=== PATIENT | female | born 1985 | race American Indian/Alaskan Native ===

== ENCOUNTER 2016-06-06 09:23 | Emergency (ER) | payer SELFPAY ==
[2016-06-06 09:57] VITALS: BP 110/73
[2016-06-06 10:30] LABS: Basophils % (Auto) 0.3 % (0.0-1.8); Eosinophils % (Auto) 0.9 % (0.0-4.3); Hematocrit 38.1 % (30.3-42.9); Hemoglobin 12.6 gm/dl (10.1-14.3); Mean Corpuscular HGB Conc 33 % (30-34); Mean Corpuscular Hemoglobin 29 pg (28-32); Mean Corpuscular Volume 88 fl (79-97); Platelet Count 245 K/mm3 (140-440); Red Blood Count 4.31 M/mm3 (3.65-5.03); Red Cell Distribution Width 13.6 % (13.2-15.2); White Blood Count 10.2 K/mm3 (4.5-11.0)
[2016-06-06 10:37] LABS: Alanine Aminotransferase 10 units/L (7-56); Albumin 3.4 g/dL (3.9-5); Albumin/Globulin Ratio 1.1 %; Alkaline Phosphatase 50 units/L (35-129); Anion Gap 13 mmol/L; BUN/Creatinine Ratio 23.33; Bilirubin,Total 0.2 mg/dL (0.1-1.2); Blood Urea Nitrogen 7 mg/dL (7-17); Calcium 8.9 mg/dL (8.4-10.2); Carbon Dioxide 26 mmol/L (22-30); Chloride 100.3 mmol/L (98-107); Glucose 62 mg/dL (65-100); Lipase 21 units/L (13-60); Potassium 4.3 mmol/L (3.6-5.0); Sodium 135 mmol/L (137-145); Total Protein 6.5 g/dL (6.3-8.2)
[2016-06-06 11:24] LABS: Bilirubin,Urine NEG (Negative); Blood,Urine NEG (Negative); Ketones,Urine NEG (Negative); Leukocyte Esterase,Urine NEG (Negative); Mucus,Urine FEW /HPF; Nitrite,Urine NEG (Negative); Protein,Urine <15 mg/dL mg/dL (Negative); Urobilinogen,Urine < 2.0 mg/dL (<2.0)
[2016-06-06 11:55] LABS: WBC,Urine < 1.0 /HPF (0.0-6.0)
--- NOTE | 2016-06-06 12:00 | Ultrasound Report ---
Gestation: Single Position: Breech Amniotic Fluid: JABIER = normal cm Placenta: Posterior Placental Grade: 0 Heart Rate: 152 BPM Cervical length: 4.5 cm (Normal > 3 cm) It is too early for a anatomical survey BPD: 3.4 cm = 16 w 4 d HC: 2.3 cm = 16 w 1 d AC: 9.7 cm = 15 w 6 d FL: 2 cm = 15 w 6 d HC/AC Ratio: 1.3 Cephalic Index: 87 Estimated Weight: 138 grams Clinical age = 15 w 6 d EDC: 11/22/16 US Gest. Age = 16 w 1 d EDC: 11/20 at 17
--- NOTE | 2016-06-08 19:52 | ED Elopement Review ---
ED Pt Elopement review - Results review Lab results: Laboratory Tests 06/06/16 06/06/16 06/06/16 10:12 10:12 10:12 WBC 10.2 RBC 4.31 Hgb 12.6 Hct 38.1 MCV 88 MCH 29 MCHC 33 RDW 13.6 Plt Count 245 Lymph % (Auto) 16.4 [place] % (Auto) 7.2 Eos % (Auto) 0.9 Baso % (Auto) 0.3 Lymph # 1.7 [place] # 0.7 Eos # 0.1 Baso # 0.0 Seg Neutrophils % 75.2 H Seg Neutrophils # 7.7 Sodium 135 L Potassium 4.3 Chloride 100.3 Carbon Dioxide 26 Anion Gap 13 BUN 7 Creatinine 0.3 L Estimated GFR > 60 BUN/Creatinine Ratio 23.33 Glucose 62 L Calcium 8.9 Total Bilirubin 0.2 AST 13 ALT 10 Alkaline Phosphatase 50 Total Protein 6.5 Albumin 3.4 L Albumin/Globulin Ratio 1.1 Lipase 21 HCG, Quant 39335 H Urine Color Urine Turbidity Urine pH Ur Specific [place] Urine Protein Urine Glucose (UA) Urine Ketones Urine Blood Urine Nitrite Urine Bilirubin Urine Urobilinogen Ur Leukocyte Esterase Urine WBC (Auto) Urine RBC (Auto) U Epithel Cells (Auto) Urine Mucus 06/06/16 Unknown WBC RBC Hgb Hct MCV MCH MCHC RDW Plt Count Lymph % (Auto) [place] % (Auto) Eos % (Auto) Baso % (Auto) Lymph # [place] # Eos # Baso # Seg Neutrophils % Seg Neutrophils # Sodium Potassium Chloride Carbon Dioxide Anion Gap BUN Creatinine Estimated GFR BUN/Creatinine Ratio Glucose Calcium Total Bilirubin AST ALT Alkaline Phosphatase Total Protein Albumin Albumin/Globulin Ratio Lipase HCG, Quant Urine Color Yellow Urine Turbidity Clear Urine pH 8.0 H Ur Specific [place] 1.019 Urine Protein <15 mg/dl Urine Glucose (UA) Neg Urine Ketones Neg Urine Blood Neg Urine Nitrite Neg Urine Bilirubin Neg Urine Urobilinogen < 2.0 Ur Leukocyte Esterase Neg Urine WBC (Auto) < 1.0 Urine RBC (Auto) 1.0 U Epithel Cells (Auto) 3.0 Urine Mucus Few - Call Back decision Pt Call Back Decision: No action required
== END 2016-06-06 15:45 | disposition left against medical advice (07) ==
LOC: ED 09:23
DX: O26.892 Other specified pregnancy related conditions, second trimester (principal); R10.9 Unspecified abdominal pain; Z53.21 Procedure and treatment not carried out due to patient leaving prior to being seen by health care provider; Z3A.16 16 weeks gestation of pregnancy
CPT/HCPCS: 36415; 76805; 80053; 81001; 83690; 84702; 85025

== ENCOUNTER 2016-07-19 06:09 | Outpatient (CLI) | payer MEDICAID ==
[2016-07-19 06:35] VITALS: BP 120/68
[2016-07-19] MEDS ORDERED: LACTATED RINGERS 500 ML IV ONE (06:46)
[2016-07-19 07:32] LABS: Bacteria,Urine 1+ /HPF (Negative); Bilirubin,Urine NEG (Negative); Blood,Urine NEG (Negative); Ketones,Urine NEG (Negative); Leukocyte Esterase,Urine MOD (Negative); Mucus,Urine 1+ /HPF; Nitrite,Urine NEG (Negative); Protein,Urine <15 mg/dL mg/dL (Negative); Urobilinogen,Urine < 2.0 mg/dL (<2.0)
== END 2016-07-19 09:13 | disposition home or self-care (01) ==
LOC: TRG 06:09
PROVIDERS: ATTEND Obstetrics & Gynecology
DX: O47.02 False labor before 37 completed weeks of gestation, second trimester (principal); Z3A.22 22 weeks gestation of pregnancy
CPT/HCPCS: 81001

== ENCOUNTER 2018-09-20 00:38 | Emergency (ER) | payer MEDICAID ==
[2018-09-20] MEDS ORDERED: ASPIRIN PO ONE (04:11)
[2018-09-20] MEDS ORDERED: TYLENOL PO ONE (04:12)
[2018-09-20 06:04] LABS: Basophils # (Auto) 0.1 K/mm3 (0.0-0.1); Basophils % (Auto) 1.1 % (0.0-1.8); Eosinophils % (Auto) 0.6 % (0.0-4.3); Hematocrit 38.2 % (30.3-42.9); Hemoglobin 12.8 gm/dl (10.1-14.3); Lymphocytes # (Auto) 1.8 K/mm3 (1.2-5.4); Mean Corpuscular HGB Conc 34 % (30-34); Mean Corpuscular Volume 90 fl (79-97); Monocytes # (Auto) 0.5 K/mm3 (0.0-0.8); Monocytes % (Auto) 6.1 % (0.0-7.3); Platelet Count 209 K/mm3 (140-440); Red Blood Count 4.27 M/mm3 (3.65-5.03)
[2018-09-20 06:13] LABS: Bilirubin,Urine NEG (Negative); Blood,Urine NEG (Negative); Color,Urine Yellow (Yellow); Mucus,Urine FEW /HPF; Protein,Urine <15 mg/dL mg/dL (Negative); Urobilinogen,Urine < 2.0 mg/dL (<2.0); WBC,Urine < 1.0 /HPF (0.0-6.0)
[2018-09-20 06:30] LABS: Alanine Aminotransferase 14 units/L (7-56); Albumin 3.8 g/dL (3.9-5); BUN/Creatinine Ratio 18; Blood Urea Nitrogen 9 mg/dL (7-17); Calcium 8.9 mg/dL (8.4-10.2); Hemolysis Index 7
--- NOTE | 2018-09-20 06:43 | Emergency Department Report ---
<TREY GUPTA - Last Filed: 09/20/18 07:08> ED General Adult HPI - General Chief complaint: Chest Pain Stated complaint: BACK/ABD PAIN Time Seen by Provider: 09/20/18 04:05 Source: patient Mode of arrival: Ambulatory Limitations: No Limitations - History of Present Illness Initial comments: Patient is a 33-year-old -[place] female with a h/o HTN and GERD presents to the ED with complaint of acute onset persistent posterior midthoracic pain that radiated to the chest and lower abdominal pain for the last 2 days. Patient denies dizziness, fever, chills, nausea, vomiting, diarrhea, dysuria, cough, change in vision, headache, sore throat, heavy lifting or traumatic injury. Patient states that the pain has been intermittent and worse in the last 12 hours. MD Complaint: back pain, abdominal pain, chest pain -: Sudden, days(s) (2) Location: chest, back, abdomen Radiation: non-radiation Severity scale (0 -10): 7 Quality: sharp, constant Consistency: constant Improves with: none Worsens with: none Associated Symptoms: denies other symptoms. denies: confusion, chest pain, cough, diaphoresis, headaches, malaise, nausea/vomiting, shortness of breath, syncope - Related Data Home Medications Medication Instructions Recorded Confirmed Last Taken hydroCHLOROthiazide 25 mg PO DAILY 01/27/14 08/19/14 05/18/14 10:00 [Hydrochlorothiazide] Previous Rx's Medication Instructions Recorded Last Taken Type Ibuprofen [Motrin] 600 mg PO Q8H PRN #12 tablet 08/19/14 Unknown Rx Fluconazole [Diflucan TAB] 150 mg PO QDAY #2 tablet 03/07/15 Unknown Rx amLODIPine [Norvasc] 10 mg PO DAILY #30 tab 09/20/18 Unknown Rx Allergies Allergy/AdvReac Type Severity Reaction Status Date / Time No Known Allergies Allergy Verified 05/20/14 11:50 ED Review of Systems Constitutional: denies: chills, fever Eyes: denies: eye pain, eye discharge, vision change ENT: denies: ear pain, throat pain Respiratory: denies: cough, shortness of breath, SOB with exertion, SOB at rest, wheezing Cardiovascular: chest pain. denies: palpitations Endocrine: no symptoms reported Gastrointestinal: abdominal pain (lower). denies: nausea, diarrhea Genitourinary: denies: urgency, dysuria, discharge Musculoskeletal: back pain, arthralgia. denies: joint swelling Skin: denies: rash, lesions Neurological: denies: headache, weakness, paresthesias Psychiatric: denies: anxiety, depression Hematological/Lymphatic: denies: easy bleeding, easy bruising ED Past Medical Hx - Past Medical History Hx Hypertension: Yes Hx Diabetes: No Hx Deep Vein Thrombosis: No Hx GERD: Yes Hx Renal Disease: No Hx Sickle Cell Disease: No Hx Seizures: No Hx Asthma: No Additional medical history: acid reflux - Social History Smoking Status: Current Every Day Smoker - Medications Home Medications: Home Medications Medication Instructions Recorded Confirmed Last Taken Type hydroCHLOROthiazide 25 mg PO DAILY 01/27/14 08/19/14 05/18/14 10:00 History [Hydrochlorothiazide] Ibuprofen [Motrin] 600 mg PO Q8H PRN #12 tablet 08/19/14 Unknown Rx Fluconazole [Diflucan TAB] 150 mg PO QDAY #2 tablet 03/07/15 Unknown Rx amLODIPine [Norvasc] 10 mg PO DAILY #30 tab 09/20/18 Unknown Rx ED Physical Exam - General Limitations: No Limitations General appearance: alert, in no apparent distress - Head Head exam: Present: atraumatic, normocephalic, normal inspection - Eye Eye exam: Present: normal appearance, PERRL, EOMI. Absent: scleral icterus, conjunctival injection, nystagmus, periorbital swelling, periorbital tenderness - ENT ENT exam: Present: normal exam, normal orophraynx, mucous membranes moist, TM's normal bilaterally, normal external ear exam - Neck Neck exam: Present: normal inspection, full ROM - Respiratory Respiratory exam: Present: normal lung sounds bilaterally, chest wall tenderness. Absent: respiratory distress, wheezes, rales, stridor, decreased breath sounds, prolonged expiratory - Cardiovascular Cardiovascular Exam: Present: regular rate, normal rhythm, normal heart sounds. Absent: systolic murmur, diastolic murmur, rubs, gallop - GI/Abdominal GI/Abdominal exam: Present: soft, normal bowel sounds. Absent: distended, tenderness, guarding, hyperactive bowel sounds, hypoactive bowel sounds, orga nomegaly - Rectal Rectal exam: Present: deferred - Extremities Exam Extremities exam: Present: normal inspection, full ROM, normal capillary refill - Back Exam Back exam: Present: normal inspection, tenderness (Palpable posterior mid thoracic paraspinal tenderness), muscle spasm, paraspinal tenderness - Neurological Exam Neurological exam: Present: alert, oriented X3, CN II-XII intact, normal gait, reflexes normal - Psychiatric Psychiatric exam: Present: normal affect, normal mood - Skin Skin exam: Present: warm, dry, intact, normal color. Absent: rash ED Course - Reevaluation(s) Reevaluation #1: 09/20/18 06:50 Patient is alert and oriented 3 and is not in distress but hypertensive. Labs were drawn, EKG was ordered and chest x-ray ordered as well. Patient was treated for pain in the ED. EKG shows normal sinus rhythm with a ventricular rate of [address] or T-wave abnormalities. Chest x-ray shows no acute cardiopulmonary abnormalities. Lab tests results were reviewed and are all unremarkable including urinalysis and initial troponin levels. Vital signs were rechecked and the patient's blood pressure was 174/81. The second troponin level is pending. Patient care transferred to Anayeli Aly Owens MARILIN at shift change at 0700 hours 09/20/18 07:08 ED Medical Decision Making - Lab Data Result diagrams: 09/20/18 05:48 09/20/18 05:48 - Radiology Data Radiology results: report reviewed, image reviewed chest x-ray : No acute cardiopulmonary abnormalities - Medical Decision Making Patient is alert and oriented 3 and is not in distress but hypertensive. Labs were drawn, EKG was ordered and chest x-ray ordered as well. Patient was treated for pain in the ED. EKG shows normal sinus rhythm with a ventricular rate of [address] or T-wave abnormalities. Chest x-ray shows no acute cardiopulmonary abnormalities. Lab tests results were reviewed and are all unremarkable including urinalysis and initial troponin levels. Vital signs were rechecked and the patient's blood pressure was 174/81. The second troponin level is pending. Patient care transferred to Mr. Aly Owens MARILIN at shift change at 0700 hours - Differential Diagnosis nonspecific chest pain; muscle spasm; uncontrolled HTN ED Disposition Clinical Impression: Nonspecific chest pain, Uncontrolled stage 2 hypertension, Spasm of thoracic back muscle Disposition: - TO HOME OR SELFCARE Is pt being admited?: No Does the pt Need Aspirin: No Condition: Stable Instructions: Muscle Spasm (ED), Back Pain (ED), Chest Pain (ED), Hypertension (ED) Additional Instructions: Take medications with food, drink plenty of fluids and follow-up with [facility] in 5-7 days for reevaluation. Return to the ED immediately if symptoms get worse. Prescriptions: amLODIPine [Norvasc] 10 mg PO DAILY #30 tab Referrals: [facility] MD FELIZ [Primary Care Provider] - 3-5 Days PRIMARY CAREMD [Referring] - 3-5 Days JEANIE LAZARO MD [Staff Physician] - 3-5 Days [facility] [Outside] - 3-5 Days YENNY YU MD [Staff Physician] - 3-5 Days Print Language: BELARUSIAN <ALY OWENS - Last Filed: 09/20/18 08:10> ED Review of Systems ROS: Stated complaint: BACK/ABD PAIN Other details as noted in HPI ED Course Vital Signs 09/20/18 09/20/18 09/20/18 00:50 01:01 07:01 Temperature 98.2 F Pulse Rate 86 81 62 Respiratory 18 18 Rate Blood Pressure 209/101 Blood Pressure 181/87 174/80 [Left] O2 Sat by Pulse 100 100 Oximetry ED Medical Decision Making - Lab Data Result diagrams: 09/20/18 05:48 09/20/18 05:48 - Medical Decision Making Patient was originally seen by Trey Gupta and was sent to me for pending second troponin. Second troponin is negative. As per [place], patient be placed on Norvasc for blood pressure and was instructed to keep a daily diary of blood pressure and presented to primary care doctor. Patient was instructed to Fo llow-up with a primary care doctor in 3-5 days or if symptoms worsen and continue return to emergency room as soon as possible. At time of discharge, the patient does not seem toxic or ill in appearance. No acute signs of distress noted. Patient agrees to discharge treatment plan of care. No further questions noted by the patient. Critical care attestation.: If time is entered above; I have spent that time in minutes in the direct care of this critically ill patient, excluding procedure time.
[2018-09-20 07:02] VITALS: BP 174/80
--- NOTE | 2018-09-20 07:07 | XRay Report ---
CHEST PA AND LATERAL VIEWS INDICATION: chest pain. COMPARISON: None. FINDINGS: Support devices: None. Heart: Within normal limits. Lungs/Pleura: No acute pulmonary or pleural findings. IMPRESSION: 1. No significant abnormality. Signer Name: Eric Landis MD Signed: 09/20/2018 7:02 AM Workstation Name: [id number]
== END 2018-09-20 08:16 | disposition home or self-care (01) ==
LOC: ED 00:38
DX: M62.830 Muscle spasm of back (principal); K21.9 Gastro-esophageal reflux disease without esophagitis; I10 Essential (primary) hypertension; F17.200 Nicotine dependence, unspecified, uncomplicated; Z79.899 Other long term (current) drug therapy
CPT/HCPCS: 36415; 71046; 80053; 81001; 84484; 84703; 85025; 93005; 93010

== ENCOUNTER 2018-10-26 18:48 | Emergency (ER) | payer MEDICAID ==
--- NOTE | 2018-10-26 19:45 | Emergency Department Report ---
Blank Doc - Documentation Documentation: This is a 33-year-old female that presents with flank pain, pelvic pain, and n ausea. Stated is 7 weeks . This initial assessment/diagnostic orders/clinical plan/treatment(s) is/are subject to change based on patient's health status, clinical progression and re-assessment by fellow clinical providers in the ED. Further treatment and workup at subsequent clinical providers discretion. Patient/guardians urged not to elope from the ED as their condition may be serious if not clinically assessed and managed. Initial orders include: 1- Patient sent to [facility] for further evaluation and treatment 2- UA 3- labs 4- US OB
[2018-10-26 19:47] VITALS: BP 170/86
[2018-10-26 20:27] LABS: Basophils % (Auto) 0.3 % (0.0-1.8); Eosinophils # (Auto) 0.1 K/mm3 (0.0-0.4); Eosinophils % (Auto) 0.8 % (0.0-4.3); Hematocrit 36.3 % (30.3-42.9); Hemoglobin 12.2 gm/dl (10.1-14.3); Lymphocytes # (Auto) 3.1 K/mm3 (1.2-5.4); Lymphocytes % (Auto) 28.8 % (13.4-35.0); Mean Corpuscular HGB Conc 34 % (30-34); Mean Corpuscular Volume 90 fl (79-97); Monocytes # (Auto) 0.7 K/mm3 (0.0-0.8); Monocytes % (Auto) 6.7 % (0.0-7.3); Platelet Count 214 K/mm3 (140-440); Red Blood Count 4.04 M/mm3 (3.65-5.03); Red Cell Distribution Width 13.7 % (13.2-15.2)
[2018-10-26 20:35] LABS: Bilirubin,Urine NEG (Negative); Blood,Urine NEG (Negative); Color,Urine Yellow (Yellow); Hyaline Casts,Urine 2 /LPF; Mucus,Urine 3+ /HPF; Urobilinogen,Urine < 2.0 mg/dL (<2.0)
[2018-10-26] MEDS ORDERED: ZOFRAN ODT PO ONE (22:18)
[2018-10-26] MEDS ORDERED: ZOFRAN ODT ONE (22:19)
[2018-10-27] MEDS ORDERED: TYLENOL PO ONE (00:11)
[2018-10-27] MEDS ORDERED: ZOFRAN ODT PO ONE (00:11)
[2018-10-27] MEDS ORDERED: TYLENOL ONE (00:35)
[2018-10-27] MEDS ORDERED: ZOFRAN ODT ONE (00:35)
--- NOTE | 2018-10-27 01:15 | Emergency Department Report ---
ED Abdominal Pain HPI - General Chief Complaint: Abdominal Pain Stated Complaint: 7WKS /BACK/SIDE PAIN Time Seen by Provider: 10/26/18 19:44 Source: patient Mode of arrival: Ambulatory Limitations: No Limitations - History of Present Illness Initial Comments: Patient is a 33-year-old [place] female who is a A4 and was approximately eight-week frustration presents to the ED with complaint of acute onset persistent left flank pain that radiates to the suprapubic area with intractable nausea and vomiting for the last 2 days. Patient states that the last 12 hours she has hardly eaten anything because of nausea and vomiting. Patient denies dysuria, urinary frequency and urgency, vaginal bleeding, diarrhea, fever, chills, dizziness, back pain, chest pain, shortness of breath or headache and vaginal discharge. MD Complaint: abdominal pain, flank pain (left flank pain), other (nausea and vomiting) -: Sudden, days(s) (2) Location: suprapubic, L flank Radiation: suprapubic, L flank Migration to: no migration Severity: moderate Severity scale (0 -10): 3 Quality: cramping, aching, sharp Consistency: constant Improves With: nothing Worsens With: movement Associated Symptoms: denies other symptoms, nausea, vomiting. denies: diarrhea, fever, chills, dysuria, hematemesis, hematochezia, melena, anorexia, syncope - Related Data Home Medications Medication Instructions Recorded Confirmed Last Taken hydroCHLOROthiazide 25 mg PO DAILY 01/27/14 08/19/14 05/18/14 10:00 [Hydrochlorothiazide] Previous Rx's Medication Instructions Recorded Last Taken Type Ibuprofen [Motrin] 600 mg PO Q8H PRN #12 tablet 08/19/14 Unknown Rx Fluconazole [Diflucan TAB] 150 mg PO QDAY #2 tablet 03/07/15 Unknown Rx amLODIPine [Norvasc] 10 mg PO DAILY #30 tab 09/20/18 Unknown Rx Ondansetron [Zofran Odt] 4 mg PO Q6H PRN #15 tab.rapdis 10/27/18 Unknown Rx Promethazine [Phenergan] 25 mg PO Q6HR PRN #30 tab 10/27/18 Unknown Rx Allergies Allergy/AdvReac Type Severity Reaction Status Date / Time No Known Allergies Allergy Verified 03/06/15 11:50 ED Review of Systems ROS: Stated complaint: 7WKS /BACK/SIDE PAIN Other details as noted in HPI Constitutional: denies: chills, fever Eyes: denies: eye pain, eye discharge, vision change ENT: denies: ear pain, throat pain Respiratory: denies: cough, shortness of breath, wheezing Cardiovascular: denies: chest pain, palpitations Endocrine: no symptoms reported Gastrointestinal: abdominal pain (left flank), nausea, vomiting. denies: diarrhea Genitourinary: denies: urgency, dysuria, discharge Musculoskeletal: back pain, myalgia. denies: joint swelling, arthralgia Skin: denies: rash, lesions Neurological: denies: headache, weakness, paresthesias Psychiatric: denies: anxiety, depression Hematological/Lymphatic: denies: easy bleeding, easy bruising ED Past Medical Hx - Past Medical History Previous Medical History?: Yes Hx Hypertension: Yes Hx Diabetes: No Hx Deep Vein Thrombosis: No Hx GERD: Yes Hx Renal Disease: No Hx Sickle Cell Disease: No Hx Seizures: No Hx Asthma: No Additional medical history: acid reflux - Surgical History Past Surgical History?: No - Social History Smoking Status: Current Every Day Smoker - Medications Home Medications: Home Medications Medication Instructions Recorded Confirmed Last Taken Type hydroCHLOROthiazide 25 mg PO DAILY 01/27/14 08/19/14 05/18/14 10:00 History [Hydrochlorothiazide] Ibuprofen [Motrin] 600 mg PO Q8H PRN #12 tablet 08/19/14 Unknown Rx Fluconazole [Diflucan TAB] 150 mg PO QDAY #2 tablet 03/07/15 Unknown Rx amLODIPine [Norvasc] 10 mg PO DAILY #30 tab 09/20/18 Unknown Rx Ondansetron [Zofran Odt] 4 mg PO Q6H PRN #15 tab.rapdis 10/27/18 Unknown Rx Promethazine [Phenergan] 25 mg PO Q6HR PRN #30 tab 10/27/18 Unknown Rx ED Physical Exam - General Limitations: No Limitations General appearance: alert, in no apparent distress - Head Head exam: Present: atraumatic, normocephalic, normal inspection - Eye Eye exam: Present: normal appearance, PERRL, EOMI Pupils: Present: normal accommodation - ENT ENT exam: Present: normal exam, normal orophraynx, mucous membranes moist, TM's normal bilaterally, normal external ear exam - Neck Neck exam: Present: normal inspection, full ROM - Respiratory Respiratory exam: Present: normal lung sounds bilaterally. Absent: respiratory distress, wheezes, rales, stridor, chest wall tenderness, decreased breath sounds, prolonged expiratory - Cardiovascular Cardiovascular Exam: Present: regular rate, normal rhythm, normal heart sounds. Absent: systolic murmur, diastolic murmur, rubs, gallop - GI/Abdominal GI/Abdominal exam: Present: soft, tenderness (Left flank, suprapubic), normal bowel sounds. Absent: guarding, rebound, hyperactive bowel sounds, organomegaly - Rectal Rectal exam: Present: deferred - Bi-manual exam: Present: other (deferred, patient choice) - Extremities Exam Extremities exam: Present: normal inspection, normal capillary refill - Back Exam Back exam: Present: normal inspection, full ROM. Absent: tenderness, CVA tenderness (R), CVA tenderness (L), muscle spasm, paraspinal tenderness, verte bral tenderness - Neurological Exam Neurological exam: Present: alert, oriented X3, CN II-XII intact, normal gait, reflexes normal - Psychiatric Psychiatric exam: Present: normal affect, normal mood - Skin Skin exam: Present: warm, dry, intact, normal color. Absent: rash ED Course Vital Signs 10/26/18 10/26/18 19:27 19:44 Temperature 98.0 F 98.8 F Pulse Rate 76 79 Respiratory 18 18 Rate Blood Pressure 170/86 Blood Pressure 114/73 [Right] O2 Sat by Pulse 95 99 Oximetry - Reevaluation(s) Reevaluation #1: 10/27/18 01:20 This is 33-year-old female who is approximately 8 weeks gestation who presents to the ED with left flank pain with nausea and vomiting for the last 2 days. In the ED, patient is alert and oriented 3 and is not in distress with normal vital signs. Lab test results were reviewed and are unremarkable. Transvaginal pelvic ultrasound show a single viable IUP with a crown-rump length of 1.6 cm corresponding to a gestational age of 8 weeks and 0 days, and heart rate of 164 beats per minutes. The left ovary is unremarkable. Right ovary content 3 separate cysts the largest of which measures 3.8 cm. There is no free fluid. Patient was treated for pain and nausea and vomiting in the ED. On reevaluation, patient's been unremitting resolved. Patient was discharged home on antiemetics and advised to take Tylenol as needed for pain, and follow-up with [facility] physician in 2-3 days for reevaluation or return to the ED immediately if symptoms get worse. Patient also advised to maintain complete pelvic rest. Patient was advised to return to the ED immediately if symptoms get worse. ED Medical Decision Making - Lab Data Result diagrams: 10/26/18 20:01 - Radiology Data Radiology results: report reviewed, image reviewed The transvaginal ultrasound shows single viable IUP with a crown-rump length of 1.6 cm corresponding to a gestational age of 8 weeks and 0 days, and heart rate of 164 beats per minutes. The left ovary is unremarkable. Right ovary content 3 separate cysts the largest of which measures 3.8 cm. There is no free fluid. - Medical Decision Making ovarian cyst; ectopic ; threatened miscarriage, acute UTI; muscle spasm of back Critical care attestation.: If time is entered above; I have spent that time in minutes in the direct care of this critically ill patient, excluding procedure time. ED Disposition Clinical Impression: Acute abdominal pain in left flank, Nausea and vomiting in prior to 22 weeks gestation, Spasm of muscle of lower back Disposition: DC-01 TO HOME OR SELFCARE Is pt being admited?: No Does the pt Need Aspirin: No Condition: Stable Instructions: Abdominal Pain (ED), Acute Nausea and Vomiting (ED) Additional Instructions: Maintain a complete pelvic rest. Take medications with food, drink plenty of fluids and follow up with your [facility] physician in 5-7 days for further evaluation. Return to the ED immediately if symptoms get worse Prescriptions: Promethazine [Phenergan] 25 mg PO Q6HR PRN #30 tab PRN Reason: Nausea Ondansetron [Zofran Odt] 4 mg PO Q6H PRN #15 tab.rapdis PRN Reason: Nausea Referrals: CHUYITA GREGG MD [Primary Care Provider] - 3-5 Days Time of Disposition: 01:12 Print Language: DOMINICAN
--- NOTE | 2018-10-27 10:04 | Ultrasound Report ---
US OB <= 14 weeks fetus INDICATION / CLINICAL INFORMATION: pelvic and flank pain. COMPARISON: None available. FINDINGS: Single, viable intrauterine . [place]-rump length measures 1.6 cm, corresponding to a gestatio nal age of 8 weeks 0 days. heart rate 164. Left ovary is unremarkable. Right ovary contains 3 separate cysts, the largest measuring 3.8 cm. No f ree fluid. IMPRESSION: 1. Single, viable intrauterine of approximately 8 weeks 0 days. Signer Name: Deondre Lu MD Signed: 10/26/2018 9:22 PM Workstation Name: [id number]
--- NOTE | 2018-10-27 10:04 | Ultrasound Report ---
See other report. Signer Name: Deondre Lu MD Signed: 10/26/2018 9:37 PM Workstation Name: [id number]
== END 2018-10-27 01:36 | disposition home or self-care (01) ==
LOC: ED 18:48
DX: O21.8 Other vomiting complicating pregnancy (principal); O26.891 Other specified pregnancy related conditions, first trimester; R10.9 Unspecified abdominal pain; M62.830 Muscle spasm of back; O16.1 Unspecified maternal hypertension, first trimester; O99.611 Diseases of the digestive system complicating pregnancy, first trimester; K21.0 Gastro-esophageal reflux disease with esophagitis; O99.331 Smoking (tobacco) complicating pregnancy, first trimester; F17.200 Nicotine dependence, unspecified, uncomplicated; Z3A.08 8 weeks gestation of pregnancy; Z79.899 Other long term (current) drug therapy
CPT/HCPCS: 36415; 76801; 76817; 81001; 84702; 85025; 99284; Q0162